=== PATIENT | female | born 1960 | race African-American/Black ===

== ENCOUNTER 2021-04-23 12:34 | Emergency (ER) | payer MEDICAID ==
[~2021-04-23] VITALS: Ht 162.6 cm; Wt 107.2 kg
[2021-04-23 12:45] VITALS: BP 126/76
--- NOTE | 2021-04-23 13:55 | PHYS DOC ---
Past Medical History Additional Past Medical Histor: seasonal allergies (ARMIDA SERRANO APRN) Past Surgical History: Hysterectomy, Other Additional Past Surgical Histo: "something on my neck" (ARMIDA SERRANO APRN) General Adult EDM: Chief Complaint: EYE PROBLEMS HPI: HPI: Patient is a 61-year-old female that presents today with right eye pain with redness. Patient states that the pain and redness started yesterday and got worse today she states that she has not had any drainage she has had tears but no colored drainage is noted. Patient states she got a new pair of glasses about a year ago and she has been told she has cataracts in the past and they are monitoring them. (ARMIDA SERRANO APRN) Review of Systems: Review of Systems: Constitutional: Denies fever or chills. [] Eyes: Right eye pain and redness HENT: Denies nasal congestion or sore throat. [] Respiratory: Denies cough or shortness of breath. [] Cardiovascular: Denies chest pain or edema. [] GI: Denies abdominal pain, nausea, vomiting, bloody stools or diarrhea. [] : Denies dysuria. [] Musculoskeletal: Denies back pain or joint pain. [] Integument: Denies rash. [] Neurologic: Denies headache, focal weakness or sensory changes. [] Endocrine: Denies polyuria or polydipsia. [] Lymphatic: Denies swollen glands. [] Psychiatric: Denies depression or anxiety. [] (ARMIDA SERRANO APRN) Heart Score: C/O Chest Pain: N/A Risk Factors: Risk Factors: DM, Current or recent (<one month) smoker, HTN, HLP, family history of CAD, obesity. Risk Scores: Score 0 - 3: 2.5% MACE over next 6 weeks - Discharge Home Score 4 - 6: 20.3% MACE over next 6 weeks - Admit for Clinical Observation Score 7 - 10: 72.7% MACE over next 6 weeks - Early Invasive Strategies (ARMIDA SERRANO APRN) Current Medications: Current Medications Medications (Trade) Dose Ordered Sig/Lakisha Start Time Stop Time Status Last Admin Dose Admin Fluorescein Sodium (Ful-Denia) 1 strip 1X ONCE 04/23/21 14:00 04/23/21 14:01 UNV Tetracaine HCl (Tetracaine) 1 drop 1X ONCE 04/23/21 14:00 04/23/21 14:01 UNV (ARMIDA SERRANO APRN) Allergies: Allergies: Allergies Coded Allergies Type Severity Reaction Last Updated Verified No Known Drug Allergies 04/23/21 No (ARMIDA SERRANO APRN) Physical Exam: PE: Constitutional: Well developed, well nourished, no acute distress, non-toxic a ppearance. [] HENT: Normocephalic, atraumatic, bilateral external ears normal, oropharynx moist, no oral exudates, nose normal. [] Eyes: Right eye redness is noted in the anterior portion of the eye, pupils are reactive to light, right eye red reflex noted, ocular muscles intact patient moves all 4 directions without any difficulty, patient does states she has pain with eye movement when she looks to the outer portion of her eye. Visual acuity was done by the nurse and as noted in their charting. Neck: Normal range of motion, no tenderness, supple, no stridor. [] Cardiovascular:Heart rate regular rhythm, no murmur [] Lungs & Thorax: Bilateral breath sounds clear to auscultation [] Abdomen: Bowel sounds normal, soft, no tenderness, no masses, no pulsatile m asses. [] Skin: Warm, dry, no erythema, no rash. [] Back: No tenderness, no CVA tenderness. [] Extremities: No tenderness, no cyanosis, no clubbing, ROM intact, no edema. [] Neurologic: Alert and oriented X 3, normal motor function, normal sensory function, no focal deficits noted. [] Psychologic: Affect normal, judgement normal, mood normal. [] (ARMIDA SERRANO APRN) Current Patient Data: Vital Signs: Vital Signs Date Time Temp Pulse Resp B/P (MAP) Pulse Ox O2 Delivery O2 Flow Rate FiO2 04/23/21 12:45 98.0 78 18 126/76 (93) 97 Room Air 98.0 (ARMIDA SERRANO APRN) EKG: EKG: [] (ARMIDA SERRANO APRN) Radiology/Procedures: Radiology/Procedures: [] (ARMIDA SERRANO APRN) Course & Med Decision Making: Course & Med Decision Making Pertinent Labs and Imaging studies reviewed. (See chart for details) 1445 eye exam with Salazar lamp done tetracaine 2 drops instilled into the eye fluorescein strip was used to highlight the eye using a Salazar lamp no abrasions, or ulcerations was noted. Ken-Pen was used with a reading of 6. After consulting with Dr. Sims will send patient home with erythromycin ointment to be instilled 4 times daily for the next 7 days. May also use artificial tears to help with lubrication as well. Follow-up with your science teacher or the science teacher on-call that was given to you in the next 5 to 7 days for further management. Patient verbalized an understanding of all instructions and agrees with the plan of care] (ARMIDA SERRANO APRN) Dragon Disclaimer: Dragon Disclaimer: This electronic medical record was generated, in whole or in part, using a voice recognition dictation system. (ARMIDA SERRANO APRN) Departure Departure Impression: Primary Impression: Episcleritis of right eye Disposition: HOME / SELF CARE / HOMELESS Condition: STABLE Referrals: JANICE ROQUE MD Patient Instructions: Erythromycin eye ointment, Eye - Scleritis and Episcleritis Additional Instructions: Apply 1 cm of ointment into the right eye 4 times daily for the next 7 days Return to the emergency department if you have difficulty seeing out of your right eye, inability to move your right eye, increased pain and swelling in your right eye, or you develop a fever. Follow-up with Dr. Roque the science teacher on-call for any concerns or comments next week Take Motrin [id number] take 400 mg every 6 hours x72 hours to help with inflammation Attending Signature Attending Signature I have reviewed the PA/ENGROSSER's note and plan of care. I was available for consultation as needed during the patient's visit in the emergency department. I agree with the clinical impression, plan, and disposition. (ANNE SIMS DO) ARMIDA SERRANO APRN Apr 23, 2021 13:55 ANNE SIMS DO Apr 24, 2021 06:28
[2021-04-23] MEDS ORDERED: FLUORESCEIN OPHTH TEST STRIP. ONE (13:57)
[2021-04-23] MEDS ORDERED: TETRACAINE 0.5% OPHTH SOLUTION 4ML BOTTLE. ONE (13:58)
[2021-04-23] MEDS ORDERED: TETRACAINE 0.5% OPHTH SOLUTION 4ML BOTTLE. OD ONE (14:00)
[2021-04-23] MEDS ORDERED: FLUORESCEIN OPHTH TEST STRIP. OD ONE (14:00)
[2021-04-23] MEDS ORDERED: ERYTHROMYCIN 0.5% OPHTH OINTMENT 1GM TUBE. OD ONE (15:15)
== END 2021-04-23 15:20 | disposition home or self-care (01) ==
LOC: ER 12:34
DX: H15.101 Unspecified episcleritis, right eye (principal)
CPT/HCPCS: 99283